=== PATIENT | male | born 1960 | race Caucasian/White ===

== ENCOUNTER 2023-06-16 08:12 | Emergency (ER) | payer OTHER, SELFPAY ==
[2023-06-16 08:22] VITALS: BP 165/91; PULSE 85; RESP 18; TEMP 36.8; O2SAT 98; BMI 29.5
--- NOTE | 2023-06-16 08:45 | CRLHL7_ITS ---
For Patients: As a result of the Century Cures Act, medical imaging exams and procedure reports are released immediately into your electronic medical record. You may view this report before your referring provider. If you have questions, please contact your health care provider. Indication: Knee pain Technique: Three views Comparison: None Findings/Impression: Bones: Alignment is normal. No fractures or bone lesions. Joint spaces: Unremarkable. Soft tissues: Unremarkable. Dictated by Derik Peres MD @ 06/16/2023 9:33:09 AM (Electronically Signed)
--- NOTE | 2023-06-16 08:45 | ED.GENADULT ---
HPI - General Adult General Chief complaint: Extremity Pain/Injury, Lower Stated complaint: knee injury Time Seen by Provider: 06/16/23 08:25 History of Present Illness HPI narrative: Patient is a 62 year white male who was trying to get up on a truck yesterday slipped and says twisted his right knee. He has a popping sound that he heard on the lateral aspect of the knee, did not hurt right away but then it has been more uncomfortable. He has had proximal fibular pain where he had difficulty lying on that side. He reports that it is not swollen, he is able to bear weight but limps. He had no other injuries at the time. No head neck back to her other concern. Related Data Home Medications Medication Instructions Recorded Confirmed No Known Home Medications 06/16/23 06/16/23 Allergies Allergy/AdvReac Type Severity Reaction Status Date / Time No Known Drug Allergies Allergy Verified 06/16/23 08:24 Review of Systems Status of ROS: Reports: 6 or more systems reviewed and unremarkable except as noted in History and below PFSH PFSH Social History Smoking Status: Unknown if ever smoked Exam Narrative: Exam Narrative: Objective: Patient's vital signs show elevated blood pressure His right knee exam shows no effusion, full range of motion, no medial lateral joint line tenderness, he does have some mild proximal fibular tenderness but not significant, no crepitus No lower extremity swelling or edema Anterior posterior drawer test and mediolateral valgus stress to the knee are unremarkable and within normal limits Const: Vital Signs, click to edit/add: Vital Signs - 24 hr 06/16/23 08:22 Temperature 98.2 F Pulse Rate [Right Pulse Oximeter] 85 Respiratory Rate 18 Blood Pressure [Ri ght Upper Arm] 165/91 H Pulse Oximetry 98 Oxygen Delivery Me thod Room Air Course Vital Signs Vital signs: Initial Vital Signs Temperature 98.2 F 06/16/23 08:22 Temperature Source Temporal Artery Scan 06/16/23 08:22 Pulse Rate 85 06/16/23 08:22 Respiratory Rate 18 06/16/23 08:22 Blood Pressure 165/91 H 06/16/23 08:22 Blood Pressure Mean 115 H 06/16/23 08:22 Blood Pressure Position Sitting 06/16/23 08:22 Pulse Oximetry 98 06/16/23 08:22 Oxygen Delivery Method Room Air 06/16/23 08:22 Vital Signs Temperature 98.2 F 06/16/23 08:22 Pulse Rate 85 06/16/23 08:22 Respiratory Rate 18 06/16/23 08:22 Blood Pressure 165/91 H 06/16/23 08:22 Pulse Oximetry 98 06/16/23 08:22 Oxygen Delivery Method Room Air 06/16/23 08:22 Temperature 98.2 F 06/16/23 08:22 Pulse Rate 85 06/16/23 08:22 Respiratory Rate 18 06/16/23 08:22 Blood Pressure 165/91 H 06/16/23 08:22 Pulse Oximetry 98 06/16/23 08:22 Oxygen Delivery Method Room Air 06/16/23 08:22 Medical Decision Making MDM Narrative Medical decision making narrative: [age] year white male with a twisting injury of the right knee no effusion, proximal fibular tenderness. Rule out proximal fibular tip fracture, patient will get an x-ray of the knee, if this is negative the knee immobilizer, crutches, ice, ibuprofen over the next few days, orthopedic followup in 3-5 days with PA. return to ED sooner problems or concerns. No written for off work for 3 days until follow-up with Ortho. Discharge Plan Discharge Clinical Impression: Strain of right knee Patient Disposition: Home, Self-Care Condition: Stable Additional Instructions: Crutches, toe-touch only, knee immobilizer, ibuprofen can be used on a regular basis, ice the area that is sore in the knee for 5-10 minutes 5 times a day, recheck with your regular doctor with orthopedic doctor in the next 3-5 days. No written off work for 3 days. Activity Level: Light activity Discharge Diet: Regular Prescriptions: No Action No Known Home Medications Stand Alone Forms: [employer] Lab Info Instructions
== END 2023-06-16 10:27 | disposition home or self-care (01) ==
PROVIDERS: Emergency Provider Family Medicine
DX: S83.91XA Sprain of unspecified site of right knee, initial encounter (principal); X50.1XXA Overexertion from prolonged static or awkward postures, initial encounter
CPT/HCPCS: 73562; 99283; 99284

== ENCOUNTER 2023-07-20 07:31 | Outpatient (CLI) | payer OTHER, SELFPAY | END 2023-07-20 07:32 | disposition home or self-care (01) | LOC: NFLDREF 07-21 06:26 | PROVIDERS: PCP Family Medicine; Referring Provider Family Medicine; Visit Provider Family Medicine | DX: Z00.00 Encounter for general adult medical examination without abnormal findings (principal); E66.9 Obesity, unspecified; Z12.5 Encounter for screening for malignant neoplasm of prostate; Z13.6 Encounter for screening for cardiovascular disorders; Z12.2 Encounter for screening for malignant neoplasm of respiratory organs | CPT/HCPCS: 80053; 80061; 82043; 82570; 84153 ==

== ENCOUNTER 2023-07-29 12:35 | Outpatient (CLI) | payer OTHER, SELFPAY ==
--- NOTE | 2023-07-29 13:00 | CRLHL7_ITS ---
For Patients: As a result of the Century Cures Act, medical imaging exams and procedure reports are released immediately into your electronic medical record. You may view this report before your referring provider. If you have questions, please contact your health care provider. INDICATION: Lung cancer screening. History of smoking. High risk patient with greater than 37 pack-year smoking history. TECHNIQUE: Low-dose lung cancer screening non-contrast CT chest. Dose reduction techniques were used. COMPARISON: None. FINDINGS: NODULES: Small bilateral pulmonary nodules are present bilaterally measuring less than 4 millimeters. LUNGS AND PLEURA: COPD. No infiltrate. No edema. No effusion. MEDIASTINUM: Calcified lymph nodes are present. Mediastinal lymph nodes are upper limits of normal measuring up to 9 millimeters. Atherosclerotic changes. CORONARY ARTERY CALCIFICATION: None. LIMITED UPPER ABDOMEN: Unremarkable. No fracture. MUSCULOSKELETAL: Normal. IMPRESSION: Negative for lung cancer screening purposes. LUNG-RADS CATEGORY: 2: Benign. RADIOLOGIST RECOMMENDATION: Continue annual screening with low-dose CT chest in 12 months. Please note that all CT scans at this facility use dose modulation, iterative reconstruction, and/or weight-based dosing when appropriate to reduce radiation dose to as low as reasonably achievable. Dictated by Cirilo Rowland MD @ 07/30/2023 2:51:03 PM (Electronically Signed)
== END 2023-07-29 12:36 | disposition home or self-care (01) ==
LOC: CT 12:36
PROVIDERS: PCP Family Medicine; Visit Provider Family Medicine
DX: Z12.2 Encounter for screening for malignant neoplasm of respiratory organs (principal); R91.8 Other nonspecific abnormal finding of lung field; Z87.891 Personal history of nicotine dependence
CPT/HCPCS: 71271

== ENCOUNTER 2023-07-30 07:02 | Outpatient (CLI) | payer OTHER, SELFPAY ==
--- NOTE | 2023-07-30 08:25 | W.ANESCHARGE ---
Anesthesia Charges Start Date/Time Anesthesia Start Date: 07/30/23 Anesthesia Start Time: 07:57 Stop Date/Time Anesthesia Stop Date: 07/30/23 Anesthesia Stop Time: 08:22
--- NOTE | 2023-07-30 11:32 | W.ANESCHARGE ---
Anesthesia Charges Start Date/Time Anesthesia Start Date: 07/30/23 Anesthesia Start Time: 07:57 Stop Date/Time Anesthesia Stop Date: 07/30/23 Anesthesia Stop Time: 08:22
== END 2023-07-30 07:03 | disposition home or self-care (01) ==
LOC: OP CLINIC 07:03
PROVIDERS: PCP Family Medicine; Visit Provider Internal Medicine
DX: Z12.11 Encounter for screening for malignant neoplasm of colon (principal); K63.5 Polyp of colon; Z80.0 Family history of malignant neoplasm of digestive organs
CPT/HCPCS: 00811; 45380; 88305; J2371; J2704